=== PATIENT | female | born 1995 | race Caucasian/White ===

== ENCOUNTER → 2019-04-09 | Outpatient (CLI) | payer OTHER ==
--- NOTE | 2019-04-09 12:39 | US ---
EXAMINATION TYPE: Transabdominal DATE OF EXAM: 04/09/2019 10:55 AM COMPARISON: NONE CLINICAL HISTORY: Z36 confirm dates. EXAM PERFORMED: Transabdominal (TA) EXAM MEASUREMENTS: GESTATIONAL AGE / DATING Physician Established: (12 weeks/0 days) EDC: 10/22/2019 Dates by LMP: (12 weeks/0 days) EDC: 10/22/2019 Dates by First Scan: 12 weeks/0 days) EDC: 10/22/2019 Dates by Current Scan for: 12 weeks/0 days) EDC: 10/22/2019 MATERNAL ANATOMY Uterus: 13.2 x 6.6 x 8.8 cm Right Ovary: 1.9 x 1.2 x 1.8 cm Left Ovary: 2.9 x 1.8 x 2.5 Post CDS / Adnexa: wnl Presence of free fluid: No Presence of corpus luteal cyst: No Presence of subchorionic bleed: No GESTATION / SURVEY CRL: 5.3 cm(12 weeks/0 days) Heart Rate: 163 bpm Rhythm: Normal IUP: Viable IUP Date of LMP: 01/15/2019 Beta HcG (if available): Not available at this time Viable IUP, measurements consistent with dates. IMPRESSION: Viable 12 weeks 0 days with an EDC of 10/22/2019 and heart rate of 163 bpm.
== END | disposition home or self-care (01) ==
LOC: RADUSWWP 10:36
PROVIDERS: ATTEND Obstetrics & Gynecology
DX: Z36.89 Encounter for other specified antenatal screening (principal); Z3A.12 12 weeks gestation of pregnancy
CPT/HCPCS: 76801

== ENCOUNTER 2019-10-17 06:15 | Inpatient (IN) | payer OTHER ==
[2019-10-17] MEDS ORDERED: METHYLERGONOVINE 0.2 MG/ML 1 ML AMP IM PRN (06:46)
[2019-10-17] MEDS ORDERED: CARBOPROST TROMETHAMINE 250 MCG/ML 1 ML AMP IM PRN (06:46)
[2019-10-17] MEDS ORDERED: TERBUTALINE 1 MG/ML VIAL SQ PRN (06:46)
[2019-10-17] MEDS ORDERED: OXYTOCIN 10 UNIT/ML 1 ML VIAL IM PRN (06:46)
[2019-10-17] MEDS ORDERED: LIDOCAINE 0.5% (PF) 5 MG/ML (50 ML SDV) SQ PRN (06:46)
[2019-10-17] MEDS ORDERED: AMPICILLIN 2,000 MG in SODIUM CHLORIDE 0.9% 100 ML IVPB STA (06:58)
[2019-10-17] MEDS ORDERED: OXYTOCIN 30 UNITS/500 ML NS 30 UNIT in SALINE 1 500ML.BAG IV SCH (07:00)
[2019-10-17] MEDS: LACTATED RINGERS 1,000 ML IV SCH ×4 (07:31→20:40)
--- NOTE | 2019-10-17 08:32 | P.HPOB ---
History of Present Illness H&P Date: 10/17/19 Chief Complaint: Intrauterine at 39 weeks 2 days gestation Glenna is a 23-year-old at 39 and 2 who arrives for induction of labor. 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 Appointments were made on more than one occasion for her cardiology evaluation but she was unable to go to them. We did review the cardiology information 2018 but no further evaluation or workup had been done to verify stability of her cardiac issue. Antibiotic prophylaxis is being done as a precaution for positive group B strep but also has a precaution for endocarditis prophylaxis. Is also noted that she had a right choroid plexus cyst early in the that did resolve. Pertinent labs include O+ blood type Rh and it was negative, rubella immune, hepatitis B surface antigen and RPR were negative. Again a referral to maternal- medicine was attempted but she was unable to make that appointment or the cardiology evaluation. However, all indications seen that she is stable with her heart condition at this time. On physical exam vital signs are stable and afebrile. Heart is regular with soft murmur. Lungs are clear, extremities without pain. Abdomen soft and gravid uterus is noted. Category 1 tracing is noted with heart tones in the 130s to 140s. Pelvic exam reveals her to be dilated to 2 cm 70-80% effaced -3 station cervix is posterior. While attempting to do artificial rupture membranes she continued to clamp down and screech away in and a lot of pain which most of which she thinks is anxiety, however I was unable to do artificial rupture membranes because she was so uncooperative with the exam. We discussed continuing with Pitocin for now and seeing if her cervix will rotate forward with contractions potentially breaking her water later. Ultimately if she would like we can discharge her later today if she is not making cervical change and try and do an induction another time or allow her to go into labor spontaneously. All the questions are answered for her at this time. Assessment intrauterine at term plan for induction of labor Past Medical History Additional Past Medical History / Comment(s): ASD repair, mild-moderate regurgitation History of Any Multi-Drug Resistant Organisms: None Reported Additional Past Surgical History / Comment(s): ASD repair Past Anesthesia/Blood Transfusion Reactions: No Reported Reaction Past Psychological History: Anxiety Smoking Status: Never smoker Past Alcohol Use History: None Reported Past Drug Use History: None Reported - Past Family History Mother Family Medical History: No Reported History Father Family Medical History: No Reported History Medications and Allergies Home Medications Medication Instructions Recorded Confirmed Type Pnv No.95/Ferrous Fum/Folic AC 1 each PO DAILY 10/17/19 10/17/19 History [ Multivitamin Tablet] Allergies Allergy/AdvReac Type Severity Reaction Status Date / Time albuterol Allergy Rash/Hives Verified 10/17/19 06:45 [From Proventil HFA] Sulfa (Sulfonamide Allergy Rash/Hives Verified 10/17/19 06:45 Antibiotics) sulfamethoxazole Allergy Rash/Hives Verified 10/17/19 06:45 [From Bactrim] trimethoprim [From Bactrim] Allergy Rash/Hives Verified 10/17/19 06:45 Exam Osteopathic Statement: *. No significant issues noted on an osteopathic structural exam other than those noted in the History and Physical/Consult. Vital Signs Temp Pulse Resp BP Pulse Ox 10/17/19 06:44 97.0 F L 91 16 120/77 97 Intake and Output 10/16/19 10/17/19 10/17/19 22:59 06:59 14:59 Other: Weight 84.368 kg
[2019-10-17 08:36] LABS: Basophils % (A) 0 %; Eosinophils # (A) 0.1 k/uL (0-0.7); Eosinophils % (A) 1 %; HCT 47.3 % (34.0-46.0); HGB 15.3 gm/dL (11.4-16.0); Lymphocytes # (A) 1.1 k/uL (1.0-4.8); Lymphocytes % (A) 12 %; MCH 31.4 pg (25.0-35.0); MCHC 32.4 g/dL (31.0-37.0); Mean Platelet Volume 8.1; Monocytes # (A) 0.3 k/uL (0-1.0); Monocytes % (A) 4 %; Neutrophils # (A) 7.1 k/uL (1.3-7.7); Neutrophils % (A) 82 %; Platelet Count 273 k/uL (150-450); RBC 4.88 m/uL (3.80-5.40); RDW 12.9 % (11.5-15.5); WBC 8.7 k/uL (3.8-10.6)
[2019-10-17] MEDS ORDERED: BUTORPHANOL 1 MG/ML 1 ML VIAL IV PRN (09:48)
[2019-10-17] MEDS: AMPICILLIN 1,000 MG in SODIUM CHLORIDE 0.9% 50 ML IVPB SCH ×2 (11:42→16:02)
[2019-10-17] MEDS ORDERED: CITRIC ACID-SODIUM CITRATE 15 ML CUP PO ONE (17:00)
[2019-10-17] MEDS ORDERED: MORPHINE SULFATE (PF) 0.3 MG/0.3 ML SYR ONE (17:05)
[2019-10-17] MEDS ORDERED: ONDANSETRON 4 MG/2 ML VIAL ONE (17:05)
[2019-10-17] MEDS ORDERED: KETOROLAC 30 MG/ML 1 ML VIAL ONE (17:05)
[2019-10-17] MEDS ORDERED: OXYTOCIN 10 UNIT/ML 1 ML VIAL ONE (17:05)
[2019-10-17] MEDS ORDERED: MIDAZOLAM 2 MG/2 ML VIAL ONE (17:05)
[2019-10-17] MEDS ORDERED: ONDANSETRON 4 MG/2 ML VIAL IVP PRN (18:06)
[2019-10-17] MEDS ORDERED: NALOXONE 0.4 MG/ML 1 ML VIAL IV PRN (18:06)
[2019-10-17] MEDS ORDERED: diphenhydrAMINE 50 MG CAP PO PRN (18:06)
[2019-10-17] MEDS ORDERED: diphenhydrAMINE 50 MG/ML 1 ML VIAL IVP PRN ×2 (18:06)
[2019-10-17] MEDS ORDERED: ACETAMINOPHEN TAB 325 MG TAB PO PRN (18:06)
[2019-10-17] MEDS ORDERED: ZOLPIDEM 5 MG TAB PO PRN (18:06)
[2019-10-17] MEDS ORDERED: diphenhydrAMINE 25 MG CAP PO PRN (18:06)
[2019-10-17] MEDS ORDERED: METOCLOPRAMIDE 5 MG/ML 2 ML VIAL IVP PRN (18:06)
--- NOTE | 2019-10-17 18:10 | P.OP ---
Date of Procedure: 10/17/19 Preoperative Diagnosis: Intrauterine at term: Family to progress Postoperative Diagnosis: Same with cephalopelvic disproportion Procedure(s) Performed: Primary low transverse section Anesthesia: spinal Surgeon: Edd Colon Social Worker Assistant #1: Peg Abebe Estimated Blood Loss (ml): 275 IV fluids (ml): 1,000 Urine output (ml): 150 Pathology: none sent Condition: stable Disposition: floor Operative Findings: Male scores 8 and 9 at one and 5 minutes respectively weight of 6 lbs. 14 oz. Description of Procedure: Patient was taken to the operative suite where a spinal anesthetic was found be adequate. She was prepped and draped in the normal sterile fashion and placed in dorsal supine position with leftward tilt. Initially a Pfannenstiel skin incision was made and this incision was then carried through to the underlying layer of the fascia was second knife. Fascia was then nicked in midline and this opening was extended laterally with Warren scissors. Superior and inferior aspect of this incision were then grasped tented up and bluntly and sharply dissected off the rectus muscles. Rectus muscles were then divided the midline and sharp dissection through the peritoneum was made. This opening was then extended superiorly and inferiorly with good visualization of both bowel bladder. Bladder blade was then placed and bladder flap identified. It was entered with metastases scissors and carried across face uterus. Bladder was then bluntly dissected out of the operative field. Knife was then used to incise uterus. This opening was then fully developed with hemostat and then extended bluntly. Head was then atraumatically delivered and was noted to be engaged still well above where I would expect the head to a been following laboring all day. Once head was delivered mouth nares were bulb suctioned followed by the remainder the baby umbilical cord was then clamped cut usual fashion an nursery personnel was present to assume care. Placenta was then delivered intact and Pitocin was added to the IV. Uterus was then exteriorized cleared of clots and debris and closed in 2 layers with 0 Vicryl suture. Once excellent hemostasis was obtained blood and debris was suctioned from the posterior cul-de-sac and the uterus was reinserted into the abdomen. Peritoneal layer was then reapproximated 2-0 Vicryl. Fascial layer was closed with 0 Vicryl's. One layer of 3-0 Vicryl placed in deep subcuticular tissues reapproximate the skin and close the space. Skin was then closed with 3-0 Vicryl subcuticular. Sponge, lap, needle counts were all correct 2. Patient was then taken to the recovery room in stable and satisfactory condition.
[2019-10-17] MEDS: SENNOSIDES-DOCUSATE SODIUM 1 EACH TAB PO SCH (21:44)
[2019-10-18] MEDS: KETOROLAC 30 MG/ML 1 ML VIAL IVP PRN ×2 (01:52→10:52)
[2019-10-18 05:49] LABS: Basophils % (A) 0 %; Eosinophils # (A) 0.1 k/uL (0-0.7); Eosinophils % (A) 1 %; HCT 39.9 % (34.0-46.0); Lymphocytes # (A) 1.2 k/uL (1.0-4.8); Lymphocytes % (A) 12 %; MCH 30.9 pg (25.0-35.0); MCHC 32.6 g/dL (31.0-37.0); MCV 94.7 fL (80.0-100.0); Mean Platelet Volume 7.9; Monocytes # (A) 0.4 k/uL (0-1.0); Monocytes % (A) 4 %; Neutrophils % (A) 82 %; Platelet Count 281 k/uL (150-450); RBC 4.21 m/uL (3.80-5.40); RDW 12.8 % (11.5-15.5); WBC 9.8 k/uL (3.8-10.6)
[2019-10-18] MEDS: SENNOSIDES-DOCUSATE SODIUM 1 EACH TAB PO SCH ×2 (07:59→19:25)
--- NOTE | 2019-10-18 09:06 | P.PNOBGPC ---
Subjective - Subjective Principal diagnosis: Postop day 1 Interval history: Ann Marie is doing very well this morning. She is ambulating, voiding and tolerating her diet. She voices no complaints. All questions are answered for her at this time. We'll plan continue current care with advancement of diet and possible discharge home tomorrow. Patient reports: Reports appetite normal, Reports voiding normally, Reports pain well controlled, Reports ambulating normally [place]: doing well Objective - Vital Signs Latest vital signs: Vital Signs Temp Pulse Pulse Resp BP Pulse Ox 10/18/19 08:00 98.3 F 93 16 110/69 96 10/18/19 04:00 98.9 F 102 H 16 117/63 95 10/18/19 00:00 99.8 F H 96 14 118/62 95 10/17/19 19:58 98.2 F 87 14 116/65 98 10/17/19 19:28 81 14 104/59 99 10/17/19 18:56 73 16 103/55 98 10/17/19 18:43 81 16 121/58 98 10/17/19 18:28 79 16 115/74 10/17/19 18:13 102 H 16 120/65 98 10/17/19 17:58 96.8 F L 108 H 16 131/73 96 Intake and Output 10/17/19 10/18/19 10/18/19 22:59 06:59 14:59 Intake Total 100 Output Total 400 1400 300 Balance -400 -1400 -200 Intake: Oral 100 Output: Urine 400 1400 300 Other: Voiding Method Indwelling Catheter Toilet # Voids 1 - Exam Lungs: bilateral: normal Chest: Normal S1, Normal S2 Extremities: Present: normal Abdomen: Present: normal appearance, soft. Absent: distention, tenderness Incision: Present: normal, dry, intact Uterus: Present: normal, firm - Labs Labs: Abnormal Lab Results - Last 24 Hours (Table) 10/18/19 Range/Units 05:31 Neutrophils # 8.0 H (1.3-7.7) k/uL
[2019-10-18] MEDS: HYDROcodone/APAP 7.5-325MG 1 EACH TAB PO PRN (16:30)
[2019-10-19] MEDS: HYDROcodone/APAP 7.5-325MG 1 EACH TAB PO PRN ×2 (00:24→14:38)
[2019-10-19] MEDS: SIMETHICONE 80 MG CHEWABLE PO SCH ×2 (00:31→20:24)
[2019-10-19] MEDS: IBUPROFEN 600 MG TAB PO PRN ×2 (07:53→21:44)
[2019-10-19 08:07] VITALS: RESP 16
--- NOTE | 2019-10-19 11:39 | P.PNOBGPC ---
Subjective - Subjective Principal diagnosis: Status post primary section postoperative day #2 Interval history: Patient is doing well. She is passing flatus and bowel movement. Lochia is decreasing. Her baby is in the nursery on a bili blanket. She is pumping her breast milk. Patient reports: Reports appetite normal, Reports voiding normally, Reports pain well controlled, Reports ambulating normally [place]: doing well, other (On a bili blanket.) Objective - Vital Signs Latest vital signs: Vital Signs Temp Pulse Resp BP Pulse Ox 10/19/19 08:00 98.4 F 82 16 113/72 96 10/19/19 00:00 98.2 F 89 18 124/66 97 10/18/19 15:58 98.3 F 82 16 110/69 97 10/18/19 12:00 98.2 F 76 16 106/71 Intake and Output 10/18/19 10/19/19 10/19/19 22:59 06:59 14:59 Output Total 400 Balance -400 Output: Urine 400 Other: Voiding Method Toilet # Voids 1 1 1 - Exam Extremities: Present: normal. Absent: tenderness, edema Abdomen: Present: normal appearance, soft. Absent: distention, tenderness Incision: Present: normal, dry, intact. Absent: erythematous Uterus: Present: normal, firm. Absent: tenderness Assessment and Plan Assessment: Status post primary section postoperative day #2 Plan: Continue with postoperative and care. Anticipate discharge home tomorrow.
[2019-10-19] MEDS: SENNOSIDES-DOCUSATE SODIUM 1 EACH TAB PO SCH (20:21)
[2019-10-20] MEDS: SENNOSIDES-DOCUSATE SODIUM 1 EACH TAB PO SCH ×2 (09:06→22:06)
[2019-10-20] MEDS: IBUPROFEN 600 MG TAB PO PRN ×2 (09:07→22:06)
--- NOTE | 2019-10-20 10:57 | P.PNOBGPC ---
Subjective - Subjective Principal diagnosis: Status post primary section postoperative day #3 Interval history: Patient is still doing okay. She is concerned she saw a little bit of bright red blood underneath one of her Steri-Strips. Pain is well-controlled. Lochia is decreasing. She is passing flatus and bowel movement. She is urinating without difficulty. Baby is still on the bili light. Patient reports: Reports appetite normal, Reports voiding normally, Reports pain well controlled, Reports ambulating normally [place]: doing well (Still on a bili light.), other Objective - Vital Signs Latest vital signs: Vital Signs Temp Pulse Resp BP 10/20/19 09:00 97.8 F 86 16 123/68 10/20/19 00:00 98.6 F 86 16 131/70 10/19/19 15:59 98.3 F 87 16 122/66 Intake and Output 10/19/19 10/20/19 10/20/19 22:59 06:59 14:59 Other: # Voids 1 3 1 # Bowel Movements 1 - Exam Extremities: Present: normal. Absent: tenderness, edema Abdomen: Present: normal appearance, soft. Absent: distention, tenderness Incision: Present: normal, dry (Some dried blood is noted on the right side of the incision underneath the Steri-Strips, no active bleeding), intact. Absent: erythematous Uterus: Present: normal, firm. Absent: tenderness Assessment and Plan Assessment: Status post primary section postoperative day #3 Plan: Continue with postoperative and care. Plan for discharge home tomorrow since the baby still needs to stay 1 more day.
[2019-10-20] MEDS: HYDROcodone/APAP 7.5-325MG 1 EACH TAB PO PRN (16:15)
[2019-10-20] MEDS: SIMETHICONE 80 MG CHEWABLE PO SCH (22:07)
[2019-10-21] MEDS: HYDROcodone/APAP 7.5-325MG 1 EACH TAB PO PRN (08:05)
[2019-10-21] MEDS: SENNOSIDES-DOCUSATE SODIUM 1 EACH TAB PO SCH (08:05)
[2019-10-21 08:17] VITALS: BP 117/71; PULSE 85; TEMP 98.3
--- NOTE | 2019-10-21 08:53 | P.DS ---
Providers Date of admission: 10/17/19 06:25 Expected date of discharge: 10/21/19 Attending physician: Edd Colon Primary care physician: Stated None Hospital Course: Patient is doing very well this morning postop day 4. She is ambulating, voiding and tolerating her diet. She relates that her baby had to stay due to jaundice and that is why she remained for 4 days postop at this time she is stable for discharge and requesting same. Her vital signs are stable and she is afebrile. Heart regular, lungs clear, extremities without pain. Abdomen is soft uterus is firm and her incision is clean dry and intact. Prescription for Motrin and Manson reported to her pharmacy. All the questions to discharge instructions were thoroughly reviewed and she'll follow me in approximately 2 weeks for reevaluation. She is stable for discharge this time. Patient Condition at Discharge: Good Plan - Discharge Summary New Discharge Prescriptions: New Ibuprofen [Motrin] 600 mg PO Q6HR PRN #30 tab PRN Reason: Pain HYDROcodone/APAP 5-325MG [Manson 5-325] 1 tab PO Q4HR PRN #30 tab PRN Reason: Pain No Action Pnv No.95/Ferrous Fum/Folic AC [ Multivitamin Tablet] 1 each PO DAILY Discharge Medication List Pnv No.95/Ferrous Fum/Folic AC [ Multivitamin Tablet] 1 each PO DAILY 10/17/19 [History] HYDROcodone/APAP 5-325MG [Manson 5-325] 1 tab PO Q4HR PRN #30 tab 10/18/19 [Rx] Ibuprofen [Motrin] 600 mg PO Q6HR PRN #30 tab 10/18/19 [Rx] Follow up Appointment(s)/Referral(s): Edd Colon DO [Doctor of Osteopathic Medicine] - 2 Weeks Activity/Diet/Wound Care/Special Instructions: No heavy lifting, limit stairs and driving, and pelvic rest. If any high temperatures, heavy bleeding, or severe pain call my office Discharge Disposition: HOME SELF-CARE
[2019-10-21] MEDS: IBUPROFEN 600 MG TAB PO PRN (11:13)
[2019-10-21] MEDS: SIMETHICONE 80 MG CHEWABLE PO SCH (11:27)
== END 2019-10-21 11:45 | disposition home or self-care (01) | DRG 788 ==
LOC: 4FBP 06:25
PROVIDERS: ADMIT Obstetrics & Gynecology; ATTEND Obstetrics & Gynecology
PROC: 10D00Z1 Extraction of Products of Conception, Low, Open Approach (ICD-10-PCS; principal; 2019-10-17 06:15)
DX: O33.9 Maternal care for disproportion, unspecified (principal); O99.344 Other mental disorders complicating childbirth; F41.9 Anxiety disorder, unspecified; Z37.0 Single live birth; Z3A.39 39 weeks gestation of pregnancy; Z88.2 Allergy status to sulfonamides; Z88.8 Allergy status to other drugs, medicaments and biological substances; Z98.890 Other specified postprocedural states
CPT/HCPCS: 85025; 86850; 86900; 86901